=== PATIENT | male | born 1995 | race Hispanic/Latino ===

== ENCOUNTER 2018-01-22 06:39 | Emergency (ER) | payer SELFPAY ==
--- NOTE | 2018-01-22 08:21 | RAD REPORT ---
EXAM DESCRIPTION: RAD - Elbow Left 3 View - 01/22/2018 7:52 am CLINICAL HISTORY: PAIN Fall, trauma. COMPARISON: No comparisons FINDINGS: No fracture or dislocation is seen.
--- NOTE | 2018-01-22 08:21 | RAD REPORT ---
EXAM DESCRIPTION: RAD - Chest Single View - 01/22/2018 7:52 am CLINICAL HISTORY: Fall, trauma, left-sided chest pain Chest pain. COMPARISON: No comparisons FINDINGS: Portable technique limits examination quality. The lungs are grossly clear. The heart is normal in size. No displaced fractures. IMPRESSION: No acute intrathoracic process suspected.
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
== END 2018-01-22 08:36 | disposition home or self-care (01) ==
LOC: ER 06:39
DX: S50.02XA Contusion of left elbow, initial encounter (principal); V78.1XXA Passenger on bus injured in noncollision transport accident in nontraffic accident, initial encounter; Y93.89 Activity, other specified; Y92.9 Unspecified place or not applicable; Y99.8 Other external cause status; Z88.6 Allergy status to analgesic agent
CPT/HCPCS: 71045; 99283

== ENCOUNTER 2018-11-27 07:27 | Emergency (ER) | payer SELFPAY ==
[2018-11-27] MEDS ORDERED: KETOROLAC 30 MG/ML INJ ONE (08:04)
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
== END 2018-11-27 09:06 | disposition home or self-care (01) ==
LOC: ER 07:27
DX: S20.219A Contusion of unspecified front wall of thorax, initial encounter (principal); W10.8XXA Fall (on) (from) other stairs and steps, initial encounter; Y93.9 Activity, unspecified; Y92.9 Unspecified place or not applicable; Z88.8 Allergy status to other drugs, medicaments and biological substances
CPT/HCPCS: 70450; 71250; 72125; 96372; 99285

== ENCOUNTER 2019-01-15 16:07 | Emergency (ER) | payer SELFPAY ==
--- NOTE | 2019-01-15 17:22 | RAD REPORT ---
EXAM DESCRIPTION: US - Scrotum Testicles - 01/15/2019 4:56 pm CLINICAL HISTORY: Right-sided scrotal pain following lifting injury. COMPARISON: None. FINDINGS: Preliminary findings were provided at the time of the study. No intratesticular mass lesion identified. Doppler evaluation shows normal blood flow within each elisabeth ticle. A small cyst is present within each epididymis 4 mm or less in size. Small to moderate size left varicocele is present. Small, right greater than left hydroceles are pres ent. No hernia extending into the scrotum identifiable on this examination. IMPRESSION: No testicular abnormalities identified. Small to moderate size left varicocele.
--- NOTE | 2019-01-15 17:39 | ER ---
Nurse's Notes [facility] Name: Marc Scott Age: 23 yrs Sex: Male : 1995 Arrival Date: 01/15/2019 Time: 16:09 Bed 23 Private MD: Diagnosis: Scrotal varices Presentation: 01/15 16:12 Presenting complaint: Patient states: Reports pain to right groin that started suddenly aj approx 30 min ago while lifting a heavy piece of equipment. Care prior to arrival: None. 16:12 Method Of Arrival: Ambulatory aj 16:12 Acuity: SANTIAGO 2 aj 16:21 Transition of care: patient was not received from another setting of care. Onset of mg2 symptoms was January 15, 2019. Risk Assessment: Do you want to hurt yourself or someone else? Patient reports no desire to harm self or others. Initial Sepsis Screen: Does the patient meet any 2 criteria? No. Patient's initial sepsis screen is negative. Does the patient have a suspected source of infection? No. Patient's initial sepsis screen is negative. Triage Assessment: 16:13 General: Appears in no apparent distress. comfortable, Behavior is calm, cooperative, aj appropriate for age. Pain: Complains of pain in right testicle. Respiratory: Airway is patent Respiratory effort is even, unlabored, Respiratory pattern is regular, symmetrical. : Reports Scrotal pain: sudden onset. Derm: Skin is intact, is healthy with good turgor, Skin is pink, warm \T\ dry. normal. Historical: - Allergies: 16:13 Depakote; aj - PMHx: 17:35 Seizures; mg2 - Immunization history:: Flu vaccine status is unknown. - Social history:: Smoking status: unknown. - Ebola Screening: : No symptoms or risks identified at this time. Screenin:21 Abuse screen: Denies threats or abuse. Denies injuries from another. Nutritional mg2 screening: No deficits noted. Tuberculosis screening: No symptoms or risk factors identified. Fall Risk None identified. Assessment: 17:33 Neuro: Level of Consciousness is awake, alert, obeys commands, Oriented to person, mg2 place, time, situation. Cardiovascular: Capillary refill < 3 seconds Patient's skin is warm and dry. Respiratory: Airway is patent Respiratory effort is even, unlabored, Respiratory pattern is regular, symmetrical. GI: No signs and/or symptoms were reported involving the gastrointestinal system. : Reports Scrotal pain: sudden onset. EENT: No signs and/or symptoms were reported regarding the EENT system. Derm: Skin is intact, is healthy with good turgor, Skin is pink, warm \T\ dry. normal. Musculoskeletal: Circulation, motion, and sensation intact. Capillary refill < 3 seconds. 17:54 Reassessment: No changes from previously documented assessment. mg2 Vital Signs: 16:13 BP 144 / 75; Pulse 88; Resp 17; Temp 98.2; Pulse Ox 97% on R/A; Weight 99.79 kg; Height aj 5 ft. 9 in. (175.26 cm); 17:35 BP 103 / 49; Pulse 89; Resp 18; Temp 98; Pulse Ox 100% on R/A; mg2 16:13 Body Mass Index 32.49 (99.79 kg, 175.26 cm) aj ED Course: 16:09 Patient arrived in ED. as 16:13 Triage completed. aj 16:13 Arm band placed on right wrist. Patient placed in an exam room. aj 16:14 Aron Fritz PA is PHCP. [facility] 16:14 Micah Lopez MD is Attending Physician. bean 16:19 Diego Fall RN is Primary Nurse. mg2 16:58 Scrotum Testicles In Process Unspecified. EDMS 17:33 No provider procedures requiring assistance completed. Patient did not have IV access mg2 during this emergency room visit. 17:35 Patient has correct armband on for positive identification. mg2 17:38 Jose Cameron MD is Referral Physician. [facility] Administered Medications: No medications were administered Outcome: 17:38 Discharge ordered by . [facility] 17:54 Discharged to home ambulatory. mg2 17:54 Condition: stable 17:54 Discharge instructions given to patient, Instructed on discharge instructions, follow up and referral plans. Demonstrated understanding of instructions, follow-up care. 17:54 Patient left the ED. mg2 Signatures: Dispatcher [employer] EDMS Kaitlin Resendiz RN Aron Mak PA PA jmm Martinez, Amelia as Gardose, Michele, RN RN mg2 Corrections: (The following items were deleted from the chart) 17:54 17:35 BP 103 / 49; Pulse 89bpm; Resp 18bpm; Pulse Ox 100% RA; Temp 98F; mg2 mg2
--- NOTE | 2019-01-15 17:40 | EDPHYS ---
Physician Documentation [facility] Name: Marc Scott Age: 23 yrs Sex: Male : 1995 Arrival Date: 01/15/2019 Time: 16:09 Bed 23 Private MD: ED Physician Micah Lopez HPI: 01/15 16:23 This 23 yrs old Male presents to ER via Ambulatory with complaints of Genital jmm Pain. 16:23 The patient presents with scrotal pain, of both sides. Onset: The symptoms/episode jmm began/occurred acutely, just prior to arrival. Modifying factors: The symptoms are alleviated by remaining still, the symptoms are aggravated by movement. This is a 23 year old male with no chronic medical conditions that presents to the ED with complaints of scrotal pain worsening after lifting a luli hammer. Patient denies vomiting. Denies abdominal pain. . Historical: - Allergies: 16:13 Depakote; aj - PMHx: 17:35 Seizures; mg2 - Immunization history:: Flu vaccine status is unknown. - Social history:: Smoking status: unknown. - Ebola Screening: : No symptoms or risks identified at this time. ROS: 16:23 Constitutional: Negative for fever, chills, and weight loss, Cardiovascular: Negative jmm for chest pain, palpitations, and edema, Respiratory: Negative for shortness of breath, cough, wheezing, and pleuritic chest pain, Abdomen/GI: Negative for abdominal pain, nausea, vomiting, diarrhea, and constipation. 16:23 Skin: Negative for injury, rash, and discoloration, Neuro: Negative for headache, weakness, numbness, tingling, and seizure. 16:23 : Positive for testicular pain 16:23 All other systems are negative. Exam: 16:23 Constitutional: This is a well developed, well nourished patient who is awake, alert, jmm and in no acute distress. Head/Face: atraumatic. Eyes: EOMI, no conjunctival erythema appreciated ENT: Moist Mucus Membranes Neck: Trachea midline, Supple Chest/axilla: Normal chest wall appearance and motion. Cardiovascular: Regular rate and rhythm. No edema appreciated Respiratory: Normal respirations, no respiratory distress appreciated Abdomen/GI: Non distended, soft Back: Normal ROM Skin: General appearance color normal 16:23 MS/ Extremity: Moves all extremities, no obvious deformities appreciated, no edema noted to the lower extremities Neuro: Awake and alert, normal gait Psych: Behavior is normal, Mood is normal, Patient is cooperative and pleasant 16:23 : Male external genitalia: cremasteric reflex present right, present left, tenderness, is palpated in the right inguinal area, is palpated in the left inguinal area, of the epididymis area, that is mild. Vital Signs: 16:13 BP 144 / 75; Pulse 88; Resp 17; Temp 98.2; Pulse Ox 97% on R/A; Weight 99.79 kg; Height aj 5 ft. 9 in. (175.26 cm); 17:35 BP 103 / 49; Pulse 89; Resp 18; Temp 98; Pulse Ox 100% on R/A; mg2 16:13 Body Mass Index 32.49 (99.79 kg, 175.26 cm) aj MDM: 16:23 Patient medically screened. [facility] 17:29 Data reviewed: vital signs, nurses notes. Counseling: I had a detailed discussion with bean the patient and/or guardian regarding: the historical points, exam findings, and any diagnostic results supporting the discharge/admit diagnosis. 17:37 ED course: US negative for torsion. Patient is advised to follow up with urology for [facility] further evaluation. patient is otherwise given strict return precautions. patient understood and agrees with the plan of care. . 01/15 16:24 Order name: US Scrotum Testicles; Complete Time: 17:30 [facility] Administered Medications: No medications were administered Disposition: 01/16 07:24 Co-signature as Attending Physician, Micah Lopez MD I agree with the assessment and kdr plan of care. Disposition: 01/15/19 17:38 Discharged to Home. Impression: Scrotal varices. - Condition is Stable. - Discharge Instructions: Varicocele, Scrotal Swelling. - Medication Reconciliation Form, Thank You Letter, Antibiotic Education, Prescription Opioid Use, Work release form form. - Follow up: Jose Cameron MD; When: 2 - 3 days; Reason: Recheck today's complaints, Continuance of care, Re-evaluation by your physician. Signatures: Dispatcher [employer] EDMS Kaitlin Resendiz RN RN aj Rittger, Kevin, MD MD kdr Mickail, Joel, PA PA jmm Gardose, Michele, RN RN mg2 Corrections: (The following items were deleted from the chart) 01/15 17:54 17:38 01/15/2019 17:38 Discharged to Home. Impression: Scrotal varices. Condition is mg2 Stable. Forms are Medication Reconciliation Form, Thank You Letter, Antibiotic Education, Prescription Opioid Use. Follow up: Jose Cameron; When: 2 - 3 days; Reason: Recheck today's complaints, Continuance of care, Re-evaluation by your physician. leila
== END 2019-01-15 17:54 | disposition home or self-care (01) ==
LOC: ER 16:07
DX: I86.1 Scrotal varices (principal); Z88.8 Allergy status to other drugs, medicaments and biological substances
CPT/HCPCS: 76870; 99283

== ENCOUNTER 2019-10-23 18:12 | Emergency (ER) | payer BC ==
--- NOTE | 2019-10-23 19:23 | EDPHYS ---
Physician Documentation [facility] Name: Marc Scott Age: 24 yrs Sex: Male : 1995 Arrival Date: 10/23/2019 Time: 18:14 Bed 20 Private MD: ED Physician Micah Lopez HPI: 10/22 19:13 This 24 yrs old Male presents to ER via Ambulatory with complaints of Cough, kb Fever. 19:13 The patient or guardian reports cough, that is intermittent, described as moderate, kb with no sputum. Onset: The symptoms/episode began/occurred 2 day(s) ago. Severity of symptoms: At their worst the symptoms were moderate, in the emergency department the symptoms are unchanged. Modifying factors: The symptoms are alleviated by nothing, the symptoms are aggravated by nothing. Associated signs and symptoms: Pertinent positives: fever, sore throat, Pertinent negatives: chest pain, diarrhea, ear ache, nausea, rhinorrhea, vomiting. The patient has not experienced similar symptoms in the past. The patient has not recently seen a physician. Pt reports cough, fever and sore throat for 2 days. 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 . Historical: - Allergies: 18:19 Depakote; ca1 - Home Meds: 18:19 None [Active]; ca1 - PMHx: 18:19 Seizures; ca1 - PSHx: 18:19 Hernia repair; ca1 - Immunization history:: Adult Immunizations up to date, Flu vaccine is not up to date. - Social history:: Smoking status: Patient denies any tobacco usage or history of. ROS: 19:12 Cardiovascular: Negative for chest pain, palpitations, and edema, Abdomen/GI: Negative kb for abdominal pain, nausea, vomiting, diarrhea, and constipation, Back: Negative for injury and pain, MS/Extremity: Negative for injury and deformity, Skin: Negative for injury, rash, and discoloration, Neuro: Negative for headache, weakness, numbness, tingling, and seizure. 19:12 Constitutional: Positive for fever, Negative for body aches, chills, fatigue, malaise, poor PO intake, weight loss. 19:12 ENT: Positive for sore throat. 19:12 Respiratory: Positive for cough, Negative for dyspnea on exertion, hemoptysis, orthopnea, pleurisy, shortness of breath, sputum production, wheezing. Exam: 19:13 Constitutional: This is a well developed, well nourished patient who is awake, alert, kb and in no acute distress. Head/Face: Normocephalic, atraumatic. Neck: Trachea midline, no thyromegaly or masses palpated, and no cervical lymphadenopathy. Supple, full range of motion without nuchal rigidity, or vertebral point tenderness. No Meningismus. Chest/axilla: Normal chest wall appearance and motion. Nontender with no deformity. No lesions are appreciated. Cardiovascular: Regular rate and rhythm with a normal S1 and S2. No gallops, murmurs, or rubs. Normal PMI, no JVD. No pulse deficits. Respiratory: Lungs have equal breath sounds bilaterally, clear to auscultation and percussion. No rales, rhonchi or wheezes noted. No increased work of breathing, no retractions or nasal flaring. Abdomen/GI: Soft, non-tender, with normal bowel sounds. No distension or tympany. No guarding or rebound. No evidence of tenderness throughout. Skin: Warm, dry with normal turgor. Normal color with no rashes, no lesions, and no evidence of cellulitis. MS/ Extremity: Pulses equal, no cyanosis. Neurovascular intact. Full, normal range of motion. Neuro: Awake and alert, GCS 15, oriented to person, place, time, and situation. Cranial nerves II-XII grossly intact. Motor strength 5/5 in all extremities. Sensory grossly intact. Cerebellar exam normal. Normal gait. 19:13 ENT: TM's: are normal, Nose: is normal, Posterior pharynx: pooling of secretions, that are mild. Vital Signs: 18:16 BP 126 / 78; Pulse 85; Resp 17 S; Temp 98.4(TE); Pulse Ox 98% on R/A; Weight 99.79 kg ca1 (R); Height 5 ft. 9 in. (175.26 cm) (R); Pain 4/10; 19:00 BP 110 / 68; Pulse 69; Resp 18; Pulse Ox 98% on R/A; vc 18:16 Body Mass Index 32.49 (99.79 kg, 175.26 cm) ca1 MDM: 18:21 Patient medically screened. kb 19:11 Data reviewed: vital signs, nurses notes. Data interpreted: Pulse oximetry: on room air kb is 98 %. Interpretation: normal. Counseling: I had a detailed discussion with the patient and/or guardian regarding: the historical points, exam findings, and any diagnostic results supporting the discharge/admit diagnosis, lab results, the need for outpatient follow up, a family practitioner, to return to the emergency department if symptoms worsen or persist or if there are any questions or concerns that arise at home. 19:12 ED course: Pt educated to self quarantine until fever/symptoms free for 72 hours. kb 10/22 18:28 Order name: Flu; Complete Time: 19:11 kb 10/22 18:28 Order name: Strep; Complete Time: 19:11 kb 10/22 19:25 Order name: Throat Culture EDMS Administered Medications: No medications were administered Disposition: 10/23 07:09 Co-signature as Attending Physician, Micah Lopez MD I agree with the assessment and kdr plan of care. Disposition: 10/23/19 19:20 Discharged to Home. Impression: Acute upper respiratory infection, unspecified. - Condition is Stable. - Discharge Instructions: Upper Respiratory Infection, Adult, [id number], Viral Respiratory Infection, [id number]. - Work release form, Medication Reconciliation Form, Thank You Letter, Antibiotic Education, Prescription Opioid Use form. - Follow up: Emergency Department; When: As needed; Reason: Worsening of condition. Follow up: Private Physician; When: 2 - 3 days; Reason: Recheck today's complaints, Continuance of care, Re-evaluation by your physician. - Notes: Call [facility] hotline for questions regarding testing Signatures: Dispatcher [employer] EDMS Samantha Ross, Micah Nguyen MD MD [facility] Stacie Garibay RN RN Gena Blake RN RN vc Corrections: (The following items were deleted from the chart) 10/22 19:55 19:20 10/23/2019 19:20 Discharged to Home. Impression: Acute upper respiratory vc infection, unspecified. Condition is Stable. Forms are Medication Reconciliation Form, Thank You Letter, Antibiotic Education, Prescription Opioid Use. Follow up: Emergency Department; When: As needed; Reason: Worsening of condition. Follow up: Private Physician; When: 2 - 3 days; Reason: Recheck today's complaints, Continuance of care, Re-evaluation by your physician. kb
--- NOTE | 2019-10-23 19:23 | ER ---
Nurse's Notes [facility] Name: Marc Scott Age: 24 yrs Sex: Male : 1995 Arrival Date: 10/23/2019 Time: 18:14 Bed 20 Private MD: Diagnosis: Acute upper respiratory infection, unspecified Presentation: 10/22 18:16 Chief complaint: Patient states: Cough, congestion, fever x 2 days. Reports chest ca1 tightness. Works at the plant. Coronavirus screen: Surgical mask placed on patient. Patient moved to private room, placed in contact and droplet isolation with eye protection until further assessment. Patient reports a cough. Patient denies shortness of breath or difficulty breathing. Patient reports a measured and/or subjective temperature greater than 100.4F. Patient denies travel on a cruise ship or to a country the [facility] currently lists as an affected area. Patient denies contact with known and/or suspected case of COVID-19. Ebola Screen: Patient negative for fever greater than or equal to 101.5 degrees Fahrenheit, and additional compatible Ebola Virus Disease symptoms Patient denies exposure to infectious person. Patient denies travel to an Ebola-affected area in the 21 days before illness onset. No symptoms or risks identified at this time. Initial Sepsis Screen: Does the patient meet any 2 criteria? No. Patient's initial sepsis screen is negative. Does the patient have a suspected source of infection? No. Patient's initial sepsis screen is negative. Risk Assessment: Do you want to hurt yourself or someone else? Patient reports no desire to harm self or others. Onset of symptoms was October 23, 2019. 18:16 Method Of Arrival: Ambulatory ca1 18:16 Acuity: SANTIAGO 4 ca1 Triage Assessment: 19:06 General: Appears in no apparent distress. comfortable, Behavior is calm, cooperative, vc appropriate for age. Pain: Complains of pain in chest Also complains of cough. Pain in chest only occurs with cough. Historical: - Allergies: 18:19 Depakote; ca1 - Home Meds: 18:19 None [Active]; ca1 - PMHx: 18:19 Seizures; ca1 - PSHx: 18:19 Hernia repair; ca1 - Immunization history:: Adult Immunizations up to date, Flu vaccine is not up to date. - Social history:: Smoking status: Patient denies any tobacco usage or history of. Screenin:06 Abuse screen: Denies threats or abuse. Nutritional screening: No deficits noted. vc Tuberculosis screening: No symptoms or risk factors identified. Fall Risk None identified. Assessment: 19:09 General: Appears in no apparent distress. uncomfortable, Behavior is calm, cooperative, vc appropriate for age. Pain: Complains of pain in chest. Neuro: Level of Consciousness is awake, alert, obeys commands, Oriented to person, place, time. Cardiovascular: Patient's skin is warm and dry. Respiratory: Airway is patent Respiratory effort is even, unlabored, Respiratory pattern is regular, symmetrical. GI: No signs and/or symptoms were reported involving the gastrointestinal system. : No signs and/or symptoms were reported regarding the genitourinary system. EENT: No signs and/or symptoms were reported regarding the EENT system. Derm: Skin is intact, is healthy with good turgor. Musculoskeletal: No signs and/or symptoms reported regarding the musculoskeletal system. Vital Signs: 18:16 BP 126 / 78; Pulse 85; Resp 17 S; Temp 98.4(TE); Pulse Ox 98% on R/A; Weight 99.79 kg ca1 (R); Height 5 ft. 9 in. (175.26 cm) (R); Pain 4/10; 19:00 BP 110 / 68; Pulse 69; Resp 18; Pulse Ox 98% on R/A; vc 18:16 Body Mass Index 32.49 (99.79 kg, 175.26 cm) ca1 ED Course: 18:14 Patient arrived in ED. ag5 18:18 Triage completed. ca1 18:19 Arm band placed on right wrist. ca1 18:21 [facility]. kb 18:21 Micah Lopez MD is Attending Physician. kb 18:23 Gena Alexander, KETNA is Primary Nurse. vc 19:09 Patient has correct armband on for positive identification. Bed in low position. Call vc light in reach. Pulse ox on. NIBP on. 19:53 No provider procedures requiring assistance completed. Patient did not have IV access vc during this emergency room visit. Administered Medications: No medications were administered Outcome: 19:20 Discharge ordered by . kb 19:45 Discharged to home ambulatory. vc 19:45 Condition: good 19:45 Discharge instructions given to patient, Instructed on discharge instructions, follow up and referral plans. Demonstrated understanding of instructions, follow-up care. 19:45 Patient left the ED. vc Signatures: Samantha Ross FNP-C FNP-Stacie Chan RN RN ca1 Sophia Carranza ag5 Gena Alexander RN RN vc Corrections: (The following items were deleted from the chart) 19:56 19:55 Patient left the ED. vc vc
[2019-10-23 20:38] VITALS: BP 110/68; O2SAT 98
[2019-10-23 20:40] VITALS: TEMP 98.4
== END 2019-10-23 19:55 | disposition home or self-care (01) ==
LOC: ER 18:12
DX: J06.9 Acute upper respiratory infection, unspecified (principal); Z88.8 Allergy status to other drugs, medicaments and biological substances
CPT/HCPCS: 87070; 87081; 87804; 99283

== ENCOUNTER 2019-12-29 07:03 | Emergency (ER) | payer BC, OTHER ==
[2019-12-29 09:00] VITALS: TEMP 98.3
[2019-12-29 09:02] VITALS: BP 124/82; O2SAT 97
--- NOTE | 2019-12-29 19:48 | ER ---
Nurse's Notes [facility] Name: Marc Scott Age: 24 yrs Sex: Male : 1995 Arrival Date: 12/29/2019 Time: 07:04 Bed 8 Private MD: Diagnosis: Encounter for screening, unspecified Presentation: 12/28 07:10 Chief complaint: Needs clearance to work. 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 Coronavirus screen: Proceed with normal triage. Ebola Screen: No symptoms or risks identified at this time. Initial Sepsis Screen: Does the patient meet any 2 criteria? No. Patient's initial sepsis screen is negative. Does the patient have a suspected source of infection? No. Patient's initial sepsis screen is negative. Risk Assessment: Do you want to hurt yourself or someone else? Patient reports no desire to harm self or others. Onset of symptoms was December 29, 2019. 07:10 Method Of Arrival: Ambulatory hb 07:10 Acuity: SANTIAGO 4 hb Historical: - Allergies: 07:14 Depakote; hb - PMHx: 07:14 Seizures; hb - PSHx: 07:14 Hernia repair; hb - Immunization history:: Adult Immunizations up to date. - Social history:: Smoking status: Patient denies any tobacco usage or history of. Screenin:15 Abuse screen: Denies threats or abuse. Denies injuries from another. Nutritional hb screening: No deficits noted. Tuberculosis screening: No symptoms or risk factors identified. Fall Risk None identified. Assessment: 07:28 General: Appears in no apparent distress. comfortable, Behavior is calm, cooperative, em appropriate for age, Reports work told him to come get checked out due to temp. reading at work, pt denies any symptoms Denies fever. Pain: Denies pain. Neuro: Level of Consciousness is awake, alert, obeys commands, Oriented to person, place, time, situation, Appropriate for age. Cardiovascular: Capillary refill < 3 seconds Patient's skin is warm and dry. Respiratory: Airway is patent Respiratory effort is even, unlabored, Respiratory pattern is regular, symmetrical, Denies cough, shortness of breath labored breathing, pain with cough. GI: Abdomen is flat. Derm: Skin is intact, is healthy with good turgor, Skin is pink, warm \T\ dry. Musculoskeletal: Capillary refill < 3 seconds, Range of motion: intact in all extremities. 08:30 Reassessment: Patient appears in no apparent distress at this time. Patient and/or em family updated on plan of care and expected duration. Pain level reassessed. Patient is alert, oriented x 3, equal unlabored respirations, skin warm/dry/pink. Vital Signs: 07:10 BP 126 / 96; Pulse 88; Resp 16; Temp 98.3(O); Pulse Ox 100% ; Weight 108.86 kg; Height hb 5 ft. 9 in. (175.26 cm); Pain 0/10; 08:30 BP 124 / 82; Pulse 63; Resp 18; Pulse Ox 97% on R/A; Pain 0/10; em 07:10 Body Mass Index 35.44 (108.86 kg, 175.26 cm) hb ED Course: 07:04 Patient arrived in ED. ds1 07:10 Belkis Singletary FNP-C [facility]. snw 07:10 Chaka Mendez MD is Attending Physician. snw 07:13 Triage completed. hb 07:14 Arm band placed on. hb 07:15 Tai Tomas, RN is Primary Nurse. em 07:32 Patient has correct armband on for positive identification. Bed in low position. Call em light in reach. 08:30 Flu and/or RSV swab sent to lab. Strep swab sent to lab. covid-19 swab sent to lab. em 08:51 No provider procedures requiring assistance completed. Patient did not have IV access em during this emergency room visit. Administered Medications: No medications were administered Outcome: 08:39 Discharge ordered by . snw 08:52 Discharged to home ambulatory. em 08:52 Condition: good 08:52 Discharge instructions given to patient, Instructed on discharge instructions, follow up and referral plans. Demonstrated understanding of instructions, follow-up care. 08:55 Patient left the ED. em Addendum: 12/31/2019 10:51 Addendum: Other attempted to contact pt regarding negative COVID-19 swab results. Was d m5 disconnected. 10:56 Addendum: Other pt notified of results and how to get a copy of results. d m5 Signatures: Jillian Lopez, RN RN dm5 Belkis Singletary FNP-C FNP-Csnw Tai Tomas, RN RN Marielle Schafer ds1 Joanna Sifuentes RN RN hb Corrections: (The following items were deleted from the chart) 12/28 07:14 07:10 Acuity: SANTIAGO 5 hb hb
--- NOTE | 2019-12-29 19:48 | EDPHYS ---
Physician Documentation [facility] Name: Marc Scott Age: 24 yrs Sex: Male : 1995 Arrival Date: 12/29/2019 Time: 07:04 Bed 8 Private MD: ED Physician Chaka Mendez HPI: 12/28 07:58 This 24 yrs old Male presents to ER via Ambulatory with complaints of 101 Temp snw Read at work. 07:58 Onset: The symptoms/episode began/occurred acutely. Associated signs and symptoms: The snw patient has no apparent associated signs or symptoms. It is unknown whether or not the patient has had similar symptoms in the past. The patient has not recently seen a physician. pt does not feel ill, went to work and thermal scanner read 101 degrees. Pt barred from work until cleared of CoVid 19. Historical: - Allergies: 07:14 Depakote; hb - PMHx: 07:14 Seizures; hb - PSHx: 07:14 Hernia repair; hb - Immunization history:: Adult Immunizations up to date. - Social history:: Smoking status: Patient denies any tobacco usage or history of. ROS: 07:58 Constitutional: Negative for fever, chills, and weight loss, Eyes: Negative for injury, snw pain, redness, and discharge, ENT: Negative for injury, pain, and discharge, Neck: Negative for injury, pain, and swelling, Cardiovascular: Negative for chest pain, palpitations, and edema, Respiratory: Negative for shortness of breath, cough, wheezing, and pleuritic chest pain, Abdomen/GI: Negative for abdominal pain, nausea, vomiting, diarrhea, and constipation, Back: Negative for injury and pain, : Negative for injury, bleeding, discharge, and swelling, MS/Extremity: Negative for injury and deformity, Skin: Negative for injury, rash, and discoloration, Neuro: Negative for headache, weakness, numbness, tingling, and seizure, Psych: Negative for depression, anxiety, suicide ideation, homicidal ideation, and hallucinations. Exam: 07:58 Constitutional: This is a well developed, well nourished patient who is awake, alert, snw and in no acute distress. Head/Face: Normocephalic, atraumatic. Eyes: Pupils equal round and reactive to light, extra-ocular motions intact. Lids and lashes normal. Conjunctiva and sclera are non-icteric and not injected. Cornea within normal limits. Periorbital areas with no swelling, redness, or edema. ENT: Nares patent. No nasal discharge, no septal abnormalities noted. Tympanic membranes are normal and external auditory canals are clear. Oropharynx with no redness, swelling, or masses, exudates, or evidence of obstruction, uvula midline. Mucous membranes moist. Neck: Trachea midline, no thyromegaly or masses palpated, and no cervical lymphadenopathy. Supple, full range of motion without nuchal rigidity, or vertebral point tenderness. No Meningismus. Chest/axilla: Normal chest wall appearance and motion. Nontender with no deformity. No lesions are appreciated. Cardiovascular: Regular rate and rhythm with a normal S1 and S2. No gallops, murmurs, or rubs. Normal PMI, no JVD. No pulse deficits. Respiratory: Lungs have equal breath sounds bilaterally, clear to auscultation and percussion. No rales, rhonchi or wheezes noted. No increased work of breathing, no retractions or nasal flaring. Abdomen/GI: Soft, non-tender, with normal bowel sounds. No distension or tympany. No guarding or rebound. No evidence of tenderness throughout. Back: No spinal tenderness. No costovertebral tenderness. Full range of motion. Skin: Warm, dry with normal turgor. Normal color with no rashes, no lesions, and no evidence of cellulitis. MS/ Extremity: Pulses equal, no cyanosis. Neurovascular intact. Full, normal range of motion. Neuro: Awake and alert, GCS 15, oriented to person, place, time, and situation. Cranial nerves II-XII grossly intact. Motor strength 5/5 in all extremities. Sensory grossly intact. Cerebellar exam normal. Normal gait. Psych: Awake, alert, with orientation to person, place and time. Behavior, mood, and affect are within normal limits. Vital Signs: 07:10 BP 126 / 96; Pulse 88; Resp 16; Temp 98.3(O); Pulse Ox 100% ; Weight 108.86 kg; Height hb 5 ft. 9 in. (175.26 cm); Pain 0/10; 08:30 BP 124 / 82; Pulse 63; Resp 18; Pulse Ox 97% on R/A; Pain 0/10; em 07:10 Body Mass Index 35.44 (108.86 kg, 175.26 cm) hb MDM: 07:11 Patient medically screened. snw 08:40 Data reviewed: vital signs, nurses notes. Data interpreted: Pulse oximetry: on room air snw is 100 %. Interpretation: normal. Special discussion: I have referred the patient to see his PCP for further evaluation of high blood pressure. Based on the history and exam findings, there is no indication for further emergent testing or inpatient evaluation. I discussed with the patient/guardian the need to see the primary care provider for further evaluation of the symptoms. 12/28 07:11 Order name: COVID-19 snw 12/28 07:11 Order name: Flu; Complete Time: 08:38 snw 12/28 07:11 Order name: Strep; Complete Time: 08:38 snw 12/28 07:11 Order name: Document PUI#; Complete Time: 08:15 snw 12/28 07:11 Order name: Droplet/Contact Precautions; Complete Time: 07:26 snw 12/28 08:47 Order name: Throat Culture [facility] 12/28 07:11 Order name: Labs collected and sent; Complete Time: 08:16 snw 12/28 07:11 Order name: Notify Health Dept [id number]/ ; Complete Time: 07:27 snw 12/28 07:11 Order name: O2 Per Protocol; Complete Time: 07:26 snw Administered Medications: No medications were administered Disposition: 15:21 Co-signature as Attending Physician, Chaka Mendez MD I agree with the assessment and johnnie plan of care. Disposition: 12/29/19 08:39 Discharged to Home. Impression: Encounter for screening, unspecified. - Condition is Stable. - Discharge Instructions: Fever, Adult, Hand Washing. - Work release form, Medication Reconciliation Form, Thank You Letter, Antibiotic Education, Prescription Opioid Use form. - Follow up: Emergency Department; When: As needed; Reason: Worsening of condition. Follow up: Private Physician; When: 2 - 3 days; Reason: Recheck today's complaints, Continuance of care, Re-evaluation by your physician. - Notes: Avoid Motrin. Quarantine until CoVid 19 results. Signatures: Dispatcher [employer] EDChaka Hart MD MD cha Therrien, Shelly, IT LEAD-C IT LEAD-Csnw Tai Tomas, RN RN em Joanna Sifuentes, RN RN Corrections: (The following items were deleted from the chart) 08:55 08:39 12/29/2019 08:39 Discharged to Home. Impression: Encounter for screening, em unspecified. Condition is Stable. Forms are Medication Reconciliation Form, Thank You Letter, Antibiotic Education, Prescription Opioid Use. Follow up: Emergency Department; When: As needed; Reason: Worsening of condition. Follow up: Private Physician; When: 2 - 3 days; Reason: Recheck today's complaints, Continuance of care, Re-evaluation by your physician. snw
== END 2019-12-29 08:55 | disposition home or self-care (01) ==
LOC: ER 07:03
DX: Z20.828 Contact with and (suspected) exposure to other viral communicable diseases (principal); Z88.5 Allergy status to narcotic agent
CPT/HCPCS: 87070; 87081; 87804 ×2; 99283; U0001